=== PATIENT | male | born 1995 | race African-American/Black ===

== ENCOUNTER 2018-01-02 12:46 | Emergency (ER) | payer SELFPAY ==
[~2018-01-02] VITALS: Ht 175.3 cm; Wt 56.0 kg
[2018-01-02] MEDS ORDERED: LIDOCAINE HCL/PF 1% 10 MG/ML 5ML VIAL IJ ONE (17:30)
[2018-01-02] MEDS ORDERED: CEFTRIAXONE SODIUM 250 MG/VIAL IM ONE (17:30)
[2018-01-02] MEDS ORDERED: AZITHROMYCIN 500 MG TABLET PO ONE (17:30)
[2018-01-02 17:37] LABS: CLARITY URINE CLEAR (CLEAR); COLOR URINE YELLOW (YELLOW); KETONES URINE NEGATIVE (NEGATIVE); LEUKOCYTE ESTERASE URINE NEGATIVE (NEGATIVE); NITRITE URINE NEGATIVE (NEGATIVE); OCCULT BLOOD URINE NEGATIVE (NEGATIVE); PH URINE 7.5 (4.5-8.0); PROTEIN URINE NEGATIVE (NEGATIVE); SPECIFIC GRAVITY URINE 1.021 (1.005-1.030); UROBILINOGEN URINE 0.2 E.U./dL (0.2-1.0)
[2018-01-02 19:05] VITALS: BP 122/62
== END 2018-01-02 19:06 | disposition home or self-care (01) ==
LOC: ER 12:46
DX: R30.0 Dysuria (principal)
CPT/HCPCS: 81003; 96372; 99284; J0696